=== PATIENT | male | born 1945 | race Caucasian/White ===

== ENCOUNTER → 2019-03-01 | Outpatient (CLI) | payer MEDICARE, BC ==
[~2019-03-01] MED LIST: ACET325T26 PO; ALPHA LIPOIC ACID PO; AMIO200T42 PO; ASCO-96 PO; ASPI81TA45 PO; ATOR40TA78 PO; CHOL2000 PO; CLOP75TA PO; CO Q-10 PO; FISH OIL PO; FURO20TA3 PO; GUAI200T3 PO; LEVO750T26 PO; METO25TA35 PO; MULT-658 PO; POTA20TA6 PO; PRAS25CA6 PO; ROSU20TA2 PO; [UNRECOGNIZED DRUG - OTHER] PO
== END | disposition home or self-care (01) ==
LOC: CFH 14:34
PROVIDERS: ATTEND Thoracic Surgery (Cardiothoracic Vascular Surgery)
DX: I95.81 Postprocedural hypotension (principal); R06.02 Shortness of breath; Z95.1 Presence of aortocoronary bypass graft
CPT/HCPCS: 71046